=== PATIENT | male | born 1960 | race Caucasian/White ===

== ENCOUNTER → 2017-09-10 | Outpatient (CLI) | payer OTHER ==
--- NOTE | 2017-09-10 14:21 | RAD ---
Cervical spine radiographs 09/10/2017 Indication: Neck pain radiating down the left shoulder. Comparison: None available. Technique: Lateral, swimmer's view, AP and odontoid views of the cervical spine are provided. Findings: Cervical spine is visualized from the craniocervical junction through the cervicothoracic junction. There is minimal retrolisthesis of C5 on C6. There is disc height loss at C5-C6 and C6-C7. There is posterior marginal osteophytosis at C5-C6. There is mild multilevel facet arthropathy. There is mild uncovertebral joint disease most prominent at C5-C6. The lateral masses of C1 articulate appropriately with the C2 vertebral body. The dens is intact. Impression: 1. No acute fracture is visualized. There is minimal retrolisthesis of C5 on C6. 2. There is degenerative disc disease centered at C5-C6.
== END | disposition home or self-care (01) ==
LOC: DXRAD 13:57
PROVIDERS: ATTEND Nurse Practitioner Family
DX: M50.322 Other cervical disc degeneration at C5-C6 level (principal)
CPT/HCPCS: 72040